=== PATIENT | male | born 1960 | race Caucasian/White ===

== ENCOUNTER → 2016-08-15 11:59 | Outpatient (CLI) | payer OTHER ==
[2015-10-05 12:37] VITALS: BMI 48.3
[~2016-08-15 11:59] MED LIST: AMBIEN10 MG PO; CLARITIN 10 MG10 MG PO; COZAAR100 MG PO; FUROSEMIDE20 MG PO; THEOPHYLLINE A450 MG PO; WELLBUTRIN100 MG PO; XANAX1 MG PO
== END | disposition home or self-care (01) ==
LOC: D.MRI 11:59
DX: M54.6 Pain in thoracic spine (principal)

== ENCOUNTER 2017-05-17 01:57 | Observation (INO) | payer OTHER ==
[~2017-05-17] VITALS: Ht 186.7 cm; Wt 181.8 kg
--- NOTE | 2017-05-17 03:31 | NUR ---
PT RECEIVED VIA EMS AWAKE, ALERT, ORIENTED, AT SIDE. EMS NEFTALY STATES PT HAS MAINTAINED SINUS RHYTHM DURING TRANSPORT. PT DEMONSTATES DYSPNEA WITH EXERTION, BUT DENIES ANY NEEDS. WILL CONTIUE ADMISSION ASSESSMENT AND HISTORY, CALL DR. ARCOS FOR FURTHER ORDERS AND CONTINUE TO MONITOR PT CLOSELY.
[2017-05-17] MEDS ORDERED: LUNESTA3 MG PO (04:19)
[2017-05-17] MEDS ORDERED: GABAPENTIN100 MG PO (04:21)
[2017-05-17] MEDS ORDERED: METOPROLOL TART50 MG PO (04:21)
[2017-05-17] MEDS ORDERED: LIPITOR10 MG PO (04:22)
[2017-05-17] MEDS ORDERED: EFFEXOR XR75 MG PO (04:22)
[2017-05-17] MEDS ORDERED: VOLTAREN75 MG PO (04:23)
--- NOTE | 2017-05-17 04:32 | NUR ---
ECG SHOWS NORMAL SINUS RHYTHM @ 73 BPM WITH NONSPECIFIC T WAVE ABNORMALITY. IT TOOK SEVERAL ATTEMPTS PT HAS A VERY DISTENDED ABDOMEN AND STILL SOB.
[2017-05-17 04:48] VITALS: BP 183/87; Ht 186.7 cm; Wt 181.8 kg
[2017-05-17 04:58] VITALS: BP 183/87
--- NOTE | 2017-05-17 05:00 | NUR ---
REPORT RECEIVED FROM CATA ARROYO RN/LACY FARIAS ER @ 01:50. CATA STATED PT HAD A REACTION WITH REDNESS AND ITCHING AFTER IMMEDIATE ADMINISTRATION OF CARDIZEM. BENADRYL 25MG AND SOLU-MEDROL 125MG GIVEN. PT THEN RECEIVED METOPROLOL WITHOUT ANY INCIDENT. PT ADMINISTERED AMIODARONE AND IMMEDIATELY REACTED WITH REDNESS, RASH TO LT ARM, ITCHING, AND EXTREME SHORTNESS OF BREATH. BENADRYL 25MG AND SOLU-MEDROL 125MG GIVEN AGAIN. PT ARRIVED WITH MILD REDNESS TO HIS LEFT UPPER ARM AND ABDOMEN, BUT NO LONGER ITCHING. PTS DYSPNEA IS CHRONIC. PT WEARS A C-PAP Q HS AT HOME. PT IS CURRENTLY RESTING COMFORTABLY AT THIS TIME. TELEMETRY HAS BEEN PLACED. NO NEEDS. REMAINS AT BEDSIDE. CONTINUE TO MONITOR CLOSELY.
--- NOTE | 2017-05-17 05:01 | NUR ---
CLINICAL STATISTICAL PROGRAMMER AT BEDSIDE TO OBTAIN VITALS, CALL LIGHT IN REACH. WILL CONTINUE WITH PLAN OF CARE.
[2017-05-17 08:40] VITALS: BP 157/82
[2017-05-17] MEDS ORDERED: BETAPACE 80 MG80 MG PO (09:39)
--- NOTE | 2017-05-17 10:58 | NUR ---
THIS AM NO CHEST PAIN. MONITOR SHOWS NSR AT RATE OF 80. ORDER FOR DISCHARGE. PT AND SPOUSE GIVEN DC ORDERS AND VEREBRALIZE UNDERSTANDING. IV DC WITH TIP INTACT. TO CAR VIA [employer].
--- NOTE | 2017-05-22 12:15 | HP ---
PATIENT: JAVIER ROBB MEDICAL RECORD: [id number] ACCOUNT: [id number] LOCATION:[facility] D.[id number] : 58 ADMISSION DATE: 05/17/17 HISTORY AND PHYSICAL EXAMINATION DIAGNOSES: 1. Paroxysmal atrial fibrillation. 2. Coronary artery disease. 3. Previous PTCA and stent. 4. Obesity. 5. Hypertension. HISTORY: This is a gentleman who presents with palpitations and shortness of breath. No chest pain. He was found to be in new-onset atrial fibrillation. He has since converted to sinus rhythm. His symptomatology has abated. He does have a history of coronary artery disease with previous PTCA and stent last year. No chest pain since. His EKG is with no ST-T abnormalities. REVIEW OF SYSTEMS: The patient reports easy bruising but reports no swollen glands. The patient reports no fever, no night sweats, no significant weight gain, no significant weight loss. No significant exercise tolerance. The patient reports no dry eyes, no irritation, no vision change. Patient reports no difficulty hearing and no ear pain. Patient reports no frequent nose bleeds or nose and sinus problems. Patient reports on arm pain on exertion. No shortness of breath while lying down. No history of heart murmur. Patient reports no cough, no wheezing or coughing up blood. Patient reports no abdominal pain, no vomiting. Normal appetite. No diarrhea and not vomiting blood. No nausea and no constipation. Patient reports no incontinence. No difficulty urinating. No hematuria. No increased frequency. Patient reports no muscle aches. No weakness, no arthralgias, no back pain. No swelling of the extremities. Patient reports no abnormal mole, no jaundice, no rashes. Reports no loss of consciousness. No weakness and no numbness. No seizures, dizziness, or headaches. The patient reports no depression, no sleep disturbance, feeling safe in a relationship and no alcohol abuse. Patient reports on fatigue. Reports no runny nose or sinus pressure. No itching, no hives, and no frequent sneezing. PHYSICAL EXAMINATION: GENERAL APPEARANCE: Well-nourished, well-developed, appears stated age. Level of distress, comfortable. PSYCHIATRIC: Mental status, alert, normal affect. Orientation, oriented to time, place and person. EYES: Lids and conjunctiva, noninjected. No discharge, no pallor. ENT: Lips, teeth, gums, normal dentition. Oropharynx, no cyanosis, no pallor. NECK: Carotid arteries, bilateral normal upstroke, no bruits, no thrills. JUGULAR VEINS: No jugular venous pressure or distention. CERVICAL LYMPH NODES: Nontender, nonenlarged. THYROID: Not enlarged. Nontender. No nodules. LUNGS: Respiratory effort, unlabored. CHEST: Normal curvature. No thoracic deformity. No chest wall tenderness. Percussion, resonant. Auscultation, clear. No wheezes, no rales, no rhonchi. CARDIOVASCULAR: Precordial exam, nondisplaced. No heaves or pericardial thrills. Rate and rhythm, regular. Heart sounds, normal S1, normal S2. No S3, no gallop, no rub. Systolic murmur, not heard. Diastolic murmur, not heard. EXTREMITIES: No cyanosis, no edema. Peripheral pulses, full and equal in all HISTORY AND PHYSICAL [id number] JAVIER ROBB extremities, except as noted. No bruits appreciated. ABDOMEN: Soft, nondistended. Normal aorta. No bruit. Nontender. No masses. Liver, nontender, no hepatomegaly. Spleen, nontender, no splenomegaly. MUSCULOSKELETAL: No joint tenderness. No joint swelling. No erythema. NEUROLOGICAL: Normal gait, normal strength, normal tone. SKIN: Warm and dry. OVERALL IMPRESSION: Paroxysmal atrial fibrillation. At this time, we will discontinue his metoprolol and change him to sotalol 80 b.i.d. Continue his other medications. He will follow up with Dr. Rosenthal in 1-2 weeks. TRANSINT:[id number] Voice Confirmation ID: [id number] DOCUMENT ID: [id number] JU ARCOS MD at 1215 CC: [id number] DICTATION DATE: 05/17/17 0846 HEATING AND VENTILATING DRAFTER: 05/17/17 1142 DIS IN 05/17/17 [place] [id number] [place] [address]
--- NOTE | 2017-05-22 12:15 | DS ---
PATIENT:JAVIER ROBB :58 MEDICAL RECORD: [id number] DISCHARGE SUMMARY ADMISSION DATE: 05/17/17 DISCHARGE DATE: 05/17/17 DISCHARGE DIAGNOSES: 1. Paroxysmal atrial fibrillation. 2. Coronary artery disease. 3. Previous history of PTCA and stent. 4. Hypertension. 5. Obesity. HOSPITAL COURSE: This is a gentleman, who presents with shortness of breath and palpitations, found to be in new-onset atrial fibrillation. He converted to sinus rhythm. We had his metoprolol changed to sotalol. Follow up with Dr. Rosenthal in 2-3 weeks. TRANSINT:[id number] Voice Confirmation ID: [id number] DOCUMENT ID: [id number] JU ARCOS MD at 1215 CC: [id number] DICTATION DATE: 05/17/17 0846 BLACK PULLER: 05/17/17 1222 DIS IN 05/17/17 [place] [id number] [place] [address]
== END 2017-05-17 11:00 | disposition home or self-care (01) ==
LOC: D.MS 01:57 → D.M2 03:25 → OBSVTIME 03:25 → D.M2 03:25
PROVIDERS: ADMIT Internal Medicine Interventional Cardiology
DX: I48.0 Paroxysmal atrial fibrillation (principal); I25.10 Atherosclerotic heart disease of native coronary artery without angina pectoris; Z95.5 Presence of coronary angioplasty implant and graft; I10 Essential (primary) hypertension; E66.9 Obesity, unspecified; Z68.43 Body mass index [BMI] 50.0-59.9, adult

== ENCOUNTER 2019-09-27 21:25 | Emergency (ER) | payer MEDICAID ==
[~2019-09-27] VITALS: Ht 186.7 cm; Wt 145.5 kg
[~2019-09-27 21:25] MED LIST changes: +BETAPACE 80 MG80 MG PO; +EFFEXOR XR75 MG PO; +GABAPENTIN100 MG PO; +LIPITOR10 MG PO; +LUNESTA3 MG PO; +METOPROLOL TART50 MG PO; +VOLTAREN75 MG PO
[2019-09-27 21:33] VITALS: Ht 186.7 cm; Wt 145.5 kg
[2019-09-27] MEDS ORDERED: XARELTO10 MG (21:34)
[2019-09-27] MEDS ORDERED: HYDROCODON-ACE1 EA10 PO (22:23)
[2019-09-27] MEDS ORDERED: CLEOCIN HCL300 MG PO (22:23)
[2019-09-27 23:00] VITALS: BP 156/88
== END 2019-09-27 23:06 | disposition home or self-care (01) ==
LOC: D.ER 21:25
DX: S81.812A Laceration without foreign body, left lower leg, initial encounter (principal); W19.XXXA Unspecified fall, initial encounter; Y93.9 Activity, unspecified; Y92.9 Unspecified place or not applicable; E11.40 Type 2 diabetes mellitus with diabetic neuropathy, unspecified; I11.0 Hypertensive heart disease with heart failure; I50.9 Heart failure, unspecified; J44.9 Chronic obstructive pulmonary disease, unspecified; Z72.0 Tobacco use

== ENCOUNTER 2019-10-07 14:44 | Emergency (ER) | payer MEDICAID ==
[~2019-10-07] VITALS: Ht 186.7 cm; Wt 150.0 kg
[~2019-10-07 14:44] MED LIST changes: +CLEOCIN HCL300 MG PO; +HYDROCODON-ACE1 EA10 PO; +XARELTO10 MG
[2019-10-07 14:59] VITALS: Ht 186.7 cm; Wt 150.0 kg
[2019-10-07] MEDS ORDERED: METOPROLOL TART25 MG PO (15:03)
[2019-10-07 15:28] LABS: BASOPHILS 0.6 % (0-2); EOSINOPHILS 1.7 % (0-7); HEMATOCRIT 47.3 % (42.0-54.0); HEMOGLOBIN 15.2 g/dL (13.5-17.5); IMMATURE GRANULOCYTES 0.6 % (0-5); LYMPHOCYTES 36.7 % (15-50); MCH 28.7 pg (26.0-34.0); MCHC 32.1 g/dL (31.0-37.0); MCV 89.2 fL (80.0-100.0); MEAN PLATELET VOLUME 9.8 fL (7.4-10.4); NEUTROPHILS 50.4 % (40-80); PLATELET COUNT 326 10x3/uL (130-400); WBC 10.5 10x3/uL (4.8-10.8)
[2019-10-07 15:49] LABS: CALC OSMOLALITY 285 mosm/kg (275-300); CALCIUM 8.9 mg/dL (8.5-10.1); CARBON DIOXIDE 24.8 mmol/L (21.0-32.0); CHLORIDE - SERUM 104 mmol/L (98-107); POTASSIUM - SERUM 4.5 mmol/L (3.5-5.1); SODIUM 139 mmol/L (136-145); UREA NITROGEN 18 mg/dL (7-18); eGFR NON AFRICAN AMERICAN 81 mL/min (90-120)
[2019-10-07 15:51] LABS: INR 0.96 (0.85-1.17); PROTIME 12.8 SECONDS (11.6-15.0)
[2019-10-07 16:05] LABS: GLUCOSE 211 mg/dL (74-106)
[2019-10-07 16:06] LABS: ALBUMIN 3.7 g/dL (3.4-5.0); ALKALINE PHOSPHATASE 89 U/L (30-120); ALT (SGPT) 34 U/L (10-68); BILIRUBIN - TOTAL 0.29 mg/dL (0.2-1.3); CKMB 0.8 U/L (0.0-3.6); CREATINE KINASE 49 UL (21-232); MAGNESIUM - SERUM 2.2 mg/dL (1.8-2.4); PROTEIN - SERUM 7.5 g/dL (6.4-8.2); TROPONIN-I < 0.017 ng/mL (0.000-0.060)
[2019-10-07] MEDS ORDERED: NAPROSYN500 MG PO (19:04)
[2019-10-07 19:17] VITALS: BP 138/72
== END 2019-10-07 19:17 | disposition home or self-care (01) ==
LOC: D.ER 14:44
PROVIDERS: Family Medicine
DX: E11.40 Type 2 diabetes mellitus with diabetic neuropathy, unspecified (principal); I10 Essential (primary) hypertension; M54.5 Low back pain

== ENCOUNTER 2020-09-10 06:16 | Day surgery (SDC) | payer BC ==
[~2020-09-10] VITALS: Ht 186.7 cm; Wt 150.0 kg
--- NOTE | ~2020-09-10 | OP ---
PATIENT NAME: JAVIER ROBB MEDICAL RECORD: [id number] :58 LOCATION:D.OPS ADMISSION DATE: SURGEON: FEDERICO TORRES MD DATE OF OPERATION: 09/10/2020 PROCEDURE: Upper endoscopy. PREOPERATIVE DIAGNOSIS: Dysphagia. MEDICATIONS RECEIVED: Propofol per anesthesia. Upper endoscopy was performed. The endoscope was advanced through the mouth and advanced to the second part of the duodenum. The proximal and mid esophagus were normal. In the distal esophagus was esophagitis and a mild esophageal stricture. Distal esophageal biopsies were done. This stricture was dilated with an 18, 19, 20 mm balloon. In the gastric body, there was erythema consistent with gastritis. Random gastric biopsies were taken. The duodenum was normal. A small 1 cm hiatal hernia was visualized on retroflexion. The patient tolerated the procedure well. FINAL DIAGNOSES: Esophagitis, esophageal stricture, small hiatal hernia, and gastritis. Duodenum normal. PLAN: Check histology results. Advance diet. Return to GI office. Start proton pump inhibitor. TRANSINT:[id number] Voice Confirmation ID: [id number] DOCUMENT ID: [id number] FEDERICO TORRES MD CC: [id number] DICTATION DATE: 09/10/20 1132 INSIDE PHONE SALES: 09/10/204 [facility] SDC 09/10/20 [place] [id number] [place] [id number]
[~2020-09-10 06:16] MED LIST changes: +AMBIEN5 MG PO; +ATARAX 25 MG TA25 MG PO; +CYMBALTA60 MG PO; +DIGOXIN250 MCG PO; +JARDIANCE10 MG PO; +METOPROLOL TART25 MG PO; +NAPROSYN500 MG PO
[2020-09-10 06:47] LABS: BASOPHILS 0.4 % (0-2); EOSINOPHILS 2.4 % (0-7); HEMATOCRIT 48.2 % (42.0-54.0); HEMOGLOBIN 15.7 g/dL (13.5-17.5); IMMATURE GRANULOCYTES 0.5 % (0-5); LYMPHOCYTE ABS# 3.08 10x3/uL (1.32-3.57); LYMPHOCYTES 32.1 % (15-50); MCH 29.1 pg (26.0-34.0); MCHC 32.6 g/dL (31.0-37.0); MCV 89.3 fL (80.0-100.0); MEAN PLATELET VOLUME 9.9 fL (7.4-10.4); MONOCYTES 11.7 % (2-11); NEUTROPHIL ABS# 5.07 10x3/uL (1.78-5.38); NEUTROPHILS 52.9 % (40-80); PLATELET COUNT 291 10x3/uL (130-400); RDW 13.7 % (11.5-14.5); WBC 9.6 10x3/uL (4.8-10.8)
[2020-09-10 06:58] LABS: CALC OSMOLALITY 274 mosm/kg (275-300); CALCIUM 8.8 mg/dL (8.5-10.1); CARBON DIOXIDE 25.9 mmol/L (21.0-32.0); CHLORIDE - SERUM 102 mmol/L (98-107); CREATININE - SERUM 0.9 mg/dL (0.6-1.3); GLUCOSE 127 mg/dL (74-106); POTASSIUM - SERUM 4.2 mmol/L (3.5-5.1); SODIUM 136 mmol/L (136-145); UREA NITROGEN 14 mg/dL (7-18); eGFR NON AFRICAN AMERICAN > 90 mL/min (90-120)
[2020-09-10 10:59] VITALS: Ht 186.7 cm; Wt 150.0 kg
--- NOTE | 2020-09-10 12:01 | NUR ---
1200 IV REMOVED AND PRESSURE HELD. INSTRUCTIONS GIVEN
== END 2020-09-10 12:08 | disposition home or self-care (01) ==
LOC: D.OPS 06:16
PROVIDERS: Anesthesiology; ATTEND Internal Medicine Gastroenterology
DX: R13.10 Dysphagia, unspecified (principal); K20.90 Esophagitis, unspecified without bleeding; K22.2 Esophageal obstruction; K29.70 Gastritis, unspecified, without bleeding; K44.9 Diaphragmatic hernia without obstruction or gangrene